=== PATIENT | male | born 1975 | race Caucasian/White ===

== ENCOUNTER 2024-06-30 16:51 | Emergency (ER) | payer MEDICAID ==
[~2024-06-30] VITALS: Ht 177.8 cm; Wt 136.6 kg
[2024-06-30 16:53] VITALS: BP 146/85; PULSE 76; RESP 16; TEMP 97.9; O2SAT 97
[2024-06-30] MEDS ORDERED: MUPI2CRE22 TP (17:45)
[2024-06-30 18:17] VITALS: BP 135/82; PULSE 77; RESP 16; TEMP 98.1; O2SAT 99
== END 2024-06-30 18:17 | disposition home or self-care (01) ==
LOC: MED 16:51
DX: R21 Rash and other nonspecific skin eruption (principal); R03.0 Elevated blood-pressure reading, without diagnosis of hypertension; Z79.899 Other long term (current) drug therapy
CPT/HCPCS: 99283